=== PATIENT | female | born 2000 ===

== ENCOUNTER 2021-01-01 12:25 | Outpatient (REF) | payer MEDICAID, SELFPAY ==
--- NOTE | 2021-01-01 11:15 | PAPFT_PTH ---
PATIENT: MARISEL AL LOC: [facility]#:[id number] AGE/SX: 20/F ROOM: RE01/01/[address]: Shirley Braxton : 2000 BED: DIS: 01/01/2021 SPEC #: [id number] RECD: 01/04/21 12:58 STATUS: GRANT TURCIOS #: [id number] ANTONIO: 01/01/21 11:[address]: Shirley Braxton DEPT: [facility] Cytology RECD BY: Zohra Canchola ENTERED: 01/04/21 12:58 SP TYPE: PAPFT OTHR DR: Brit Nunez Tissues: 1 - CX/ENDOCX FOR PAP SMEARS Procedures: PAP THIN PREP/[facility] Screening Comments: [id number] (CHLAMYDIA/GC)
[2021-01-05 15:07] LABS: Chlamydia Result Negative (Negative); GC Result Negative (Negative)
== END 2021-01-01 12:26 | disposition home or self-care (01) ==
LOC: NCHCN 12:25
PROVIDERS: PCP Nurse Practitioner Family; Visit Provider Physician Assistant
DX: Z12.4 Encounter for screening for malignant neoplasm of cervix (principal); Z11.3 Encounter for screening for infections with a predominantly sexual mode of transmission; Z01.419 Encounter for gynecological examination (general) (routine) without abnormal findings
CPT/HCPCS: 87491; 87591; 88142